=== PATIENT | female | born 2000 | race Caucasian/White ===

== ENCOUNTER 2024-02-24 21:26 | Emergency (ER) | payer BC, MEDICAID, SELFPAY ==
[2024-02-24 21:27] VITALS: BP 153/95
[2024-02-24 21:49] LABS: % Basophils 0.7 % (0-2); % Eosinophils 0.8 % (0-6); % Immature Granulocytes 0.3 % (0-0.5); % Lymphocytes 26.3 % (20.5-51.1); % Monocytes 6.2 % (1.7-9.3); % Neutrophils 65.7 % (42.2-75.2); Absolute Basophils 0.1 10^3/uL (0-0.2); Absolute Eosinophils 0.1 10^3/uL (0-0.7); Absolute Monocytes 0.7 10^3/uL (0.1-0.6); Absolute Neutrophils 7.6 10^3/uL (1.4-6.5); Hematocrit 39.6 % (37.0-47.0); Hemoglobin 13.7 g/dL (12.0-16.0); Mean Corp Hgb Conc. 34.6 g/dL (33.0-37.0); Mean Corpuscular Hgb 28.4 pg (27.0-31.0); Mean Corpuscular Volume 82.2 fL (81.0-99.0); Mean Platelet Volume 9.9 fL (7.4-10.4); Nucleated Red Blood Cells % 0 %; Platelet Count 337 10^3/uL (130-400); Red Blood Cell Count 4.82 10^6/uL (4.20-5.40); Red Cell Dist. Width 12.9 % (11.5-14.5); White Blood Cell Count 11.5 10^3/uL (4.8-10.8)
[2024-02-24 22:27] LABS: ALT (SGPT) 25 U/L (0-35); AST (SGOT) 21 U/L (14-36); Albumin 4.7 g/dl (3.5-5.0); Alkaline Phosphatase 82 U/L (38-126); Blood Urea Nitrogen 21 mg/dl (7-17); Calcium 9.7 mg/dl (8.4-10.2); Carbon Dioxide 23 mmol/L (22-30); Chloride 103 mmol/L (98-107); Glucose 135 mg/dl (70-99); Potassium 3.9 mmol/L (3.5-5.1); Sodium 140 mmol/L (135-145); Total Bilirubin 0.3 mg/dl (0.2-1.3); Total Protein 7.4 g/dl (6.3-8.2); eGFR > 60.00
--- NOTE | 2024-02-25 01:08 | ED.GENMED ---
History of Present Illness
<HENNA Clark - Last Filed: 02/25/24 05:53>
General
Chief Complaint: Dizziness
Source: patient and significant other
Time Seen by Provider: 02/25/24 00:32
Nursing documentation reviewed up to this point in time: agreed with
History of Present Illness
History of Present Illness:
A 23-year-old female with PMH of asthma presents the emergency department for dizziness x 4 hours. She states that while working at the [employer] she initially began to feel dizzy when checking 'temps , which are solid bar temperatures' at 7 PM
tonight. After again checking temps at 8 PM the dizziness returned and resulted in a syncopal episode where she states 'my legs gave out and my coworkers caught me as I went down and sat me on 2 crates. 'The safety team then evaluated her which
prompted them to call EMS who took her to the hospital. She states similar episodes in the past due to hypoglycemia, but that was 'over a year ago 'and admits to having 2 meals today 1 of which was at 6:30 PM.She also admits to hydrating throughout
the day. She denies head injury or bodily injury, loss of consciousness. She states that currently she feels much better. She denies a change in caffeine intake, headache, nausea, vomiting, chest pain, shortness of breath.
Past History
<HENNA Clark - Last Filed: 02/25/24 05:53>
Past History
ED Past Medical History: Asthma
Social History
Tobacco: Non-smoker
Alcohol: Occasional
Drug: None
Review of Systems
<HENNA Clark - Last Filed: 02/25/24 05:53>
Review of Systems
Allergies reviewed?: Yes
Phy Exam
<HENNA Clark - Last Filed: 02/25/24 05:53>
General Physical Exam
General Presentation: well appearing
General age: appears stated age
General Skin: warm and dry
General Habitus: obese
General Mental: alert
General Hydration: appears well hydrated
Eye Exam
Eye Exam: PERRL
Cardiovascular Exam
Cardiovascular Exam: regular rate/rhythm, no edema, no gallop, no murmur and normal peripheral pulses
Pulmonary Exam
Pulmonary Exam: lungs clear, no respiratory distress, no rales, no crackles, no rhonchi, no wheezing and no cough
Neurological Exam
Neurological Exam: alert, oriented x3, CN II-XII intact and no motor deficits
Musculoskeletal Exam
Musculoskeletal Exam: full ROM
Skin Exam
Skin Exam: normal color, warm/dry and no rash
Psychiatric Exam
Psychiatric Exam: normal mood/affect
Course
<Arthur Healy, [facility] - Last Filed: 02/25/24 05:53>
Orders/Labs/Results
Orders:
Orders
02/24/24 21:27
EKG [Electrocardiogram (*1)] Urgent
Reason for Study: Vertigo / Dizzy
EKG- Treatment ONCE
02/24/24 21:44
CBC/With Diff [Complete Blood Count/With Diff] Urgent
CMP [Comprehensive Metabolic Panel] Urgent
Abnormal Lab Results
02/24/24
21:44
WBC 11.5 H 10^3/uL
(4.8-10.8)
Absolute Neuts (auto) 7.6 H 10^3/uL
(1.4-6.5)
Absolute Monos (auto) 0.7 H 10^3/uL
(0.1-0.6)
BUN 21 H mg/dl
(7-17)
Glucose 135 H mg/dl
(70-99)
02/24/24 21:44
02/24/24 21:44
Vital Signs
Initial and Last Documented VS:
Initial Vital Signs
Temp Pulse Resp BP Pulse Ox
98.2 F 124 17 153/95 98
02/24/24 21:27 02/24/24 21:27 02/24/24 21:27 02/24/24 21:27 02/24/24 21:27
Last Documented Vital Signs
Temp Pulse Resp BP Pulse Ox
98.7 F 98 19 152/93 97
02/25/24 01:51 02/25/24 01:51 02/25/24 01:51 02/25/24 01:51 02/25/24 01:51
Dollylt;Andrea Anguiano, - Last Filed: 02/25/24 01:41>
Orders/Labs/Results
Orders:
Orders
02/24/24 21:27
EKG [Electrocardiogram (*1)] Urgent
Reason for Study: Vertigo / Dizzy
EKG- Treatment ONCE
02/24/24 21:44
CBC/With Diff [Complete Blood Count/With Diff] Urgent
CMP [Comprehensive Metabolic Panel] Urgent
Abnormal Lab Results
02/24/24
21:44
WBC 11.5 H 10^3/uL
(4.8-10.8)
Absolute Neuts (auto) 7.6 H 10^3/uL
(1.4-6.5)
Absolute Monos (auto) 0.7 H 10^3/uL
(0.1-0.6)
BUN 21 H mg/dl
(7-17)
Glucose 135 H mg/dl
(70-99)
02/24/24 21:44
02/24/24 21:44
Vital Signs
Initial and Last Documented VS:
Initial Vital Signs
Temp Pulse Resp BP Pulse Ox
98.2 F 124 17 153/95 98
02/24/24 21:27 02/24/24 21:27 02/24/24 21:27 02/24/24 21:27 02/24/24 21:27
Last Documented Vital Signs
Temp Pulse Resp BP Pulse Ox
98.7 F 98 19 152/93 97
02/25/24 01:51 02/25/24 01:51 02/25/24 01:51 02/25/24 01:51 02/25/24 01:51
<HENNA Clark - Last Filed: 02/25/24 05:53>
MDM/Problems Addressed
Differential Diagnosis Includes:
Hypoglycemia, vasovagal syncope, dehydration.
MDM/Problems Addressed:
Hypoglycemia is unlikely due to recent p.o. intake. Dehydration is unlikely due to water intake throughout the day. Syncopal episode is most likely etiology due to working environment and temperature fluctuations at work.
<HENNA Clark - Last Filed: 02/25/24 05:53>
*Critical Care Note
Total Time (30-74mins, 75-104mins- exclusive of procedures): Not Applicable
ED Attending Note
<HENNA Clark - Last Filed: 02/25/24 05:53>
-
Portions of this chart may have been created with voice recognition software.� Occasional wrong word or��sound alike� substitutions may have occurred due to the inherent limitations of voice recognition software.
<Andrea Anguiano DO - Last Filed: 02/25/24 01:41>
ED Attending Note
Patient seen and examined by attending physician: Yes
I performed the substantive portion of visit, reviewed & personally made and approve the management plan that is documented in note by myself or OLIVIA.: Yes
ED Attending Note:
This a pleasant 23-year-old female presents to the emergency after an episode of dizziness. She works in the kitchen at [employer]. She states that she had dizziness tonight for 4 hours. She was working the salad bar checking temperatures
when she began to feel dizzy. She states that her legs gave out and her coworkers sat her down onto crates. 911 was called and she was evaluated by EMS. She was brought to the hospital. She has had similar episodes in the past secondary to
hypoglycemia. Patient states that upon arrival, symptoms had mostly resolved. Patient was seen in conjunction with the PA student. I have reviewed and agree with the history and treatment plan presented. On my independent physical exam, patient
is awake, alert, and oriented x3 no acute distress. Mentating appropriately heart is regular rate and rhythm, lungs are clear to auscultation bilaterally. Skin is warm and dry. Patient is mentating appropriately.
Discharge Plan
Departure
Patient Disposition: Home (Routine Discharge)
Date of Disposition: 02/25/24
Time of Disposition: 01:37
Patient with high blood pressure during this ER visit?: Yes
Discharge Problem:
Near syncope
Instructions: Near Fainting (DC), BLOOD PRESSURE
Referrals:
[facility] [Outside]
[facility] [Outside]
UNKNOWN - PT DOES,NOT KNOW [Family Provider] -
Activity Restrictions/Additional Instructions:
It was a pleasure meeting you and taking part in your care. We hope for your continued healing and wellness.
Please read discharge instructions in their entirety. However, they are for general education and may not describe your exact diagnosis at discharge. Information on your ER visit and medical conditions were discussed with you along with appropriate
follow up information...
If indicated, please take your medications as instructed and indicated on discharge paperwork.
Please schedule a follow up appointment as directed. Call to schedule an appointment
Please return to the emergency department with ANY change in, persisting, or worsening of symptoms. If any of your symptoms do not improve, or persist, or become more severe within 6-12 hours, please return to the emergency department for further
care.
Please return to the emergency department if you develop a headache, neck pain/stiffness, fever greater than 100.4F, chest pain, shortness of breath, persistent nausea, vomiting, slurred speech, difficulty walking, numbness/tingling, weakness, signs
of infection or any other symptoms that are worrisome to you.
If you have any questions or concerns please do not hesitate to call the Hospital at or E-mail me directly at [email or web address]
Interventions
Interventions:
*Risk Screen - Suicide Last Done: 02/24/24 21:27
*General Assessment Last Done: 02/24/24 23:38
*Neglect/Abuse Screening Last Done: 02/24/24 21:27
ED- Fall Risk Assessment Last Done: 02/24/24 23:38
*ED COVID-19 Vaccine History Last Done: 02/24/24 23:38
*Nursing Disposition Last Done: 02/25/24 01:52
ED- Neurological Assessment Last Done: 02/24/24 23:38
Discharge Date and Time
Discharge Date/Time: 02/25/24 01:55
Print Language: TUNISIAN
[2024-02-25 01:51] VITALS: BP 152/93
== END 2024-02-25 01:55 | disposition home or self-care (01) ==
LOC: EMR 21:26
PROVIDERS: Emergency Medicine; EMERGENCY PHYSICIAN Student in an Organized Health Care Education/Training Program
DX: R55 Syncope and collapse (principal); R03.0 Elevated blood-pressure reading, without diagnosis of hypertension; J45.909 Unspecified asthma, uncomplicated
CPT/HCPCS: 99284; 80053; 85025; 93005

== ENCOUNTER 2024-03-08 15:25 | Emergency (ER) | payer BC, MEDICAID, SELFPAY ==
[2024-03-08 15:29] VITALS: BP 174/107
[2024-03-08 15:32] VITALS: BP 174/107
[2024-03-08 16:00] VITALS: BP 171/104
--- NOTE | 2024-03-08 16:07 | ED.GENMED ---
History of Present Illness
General
Chief Complaint: Seizure
Source: patient and other (Friend)
Exam Limitations: none
Time Seen by Provider: 03/08/24 15:40
Nursing documentation reviewed up to this point in time: agreed with
History of Present Illness
History of Present Illness:
23-year-old female presents emergency department due to possible seizure versus syncope. She states she is feeling weak, and then was falling to the ground and in and out of consciousness. She states her arms and legs were shaking. She did not
bite her tongue. She does states she was very tired after the event. Event lasted about 1 minute. She has similar episode 2 weeks ago.
Past History
Past History
ED Past Medical History: Asthma and Other (Congenital adrenal insufficiency)
ED Past Surgical History: None
Social History
Tobacco: Non-smoker
Alcohol: Occasional
Drug: None
Review of Systems
Review of Systems
Allergies reviewed?: Yes
All Other Systems: Not applicable
Constitutional: Reports no symptoms
EENT: Reports no symptoms
Respiratory: Reports no symptoms
Cardiac: Reports no symptoms
ABD/GI: Reports no symptoms
: Reports no symptoms
Musculoskeletal: Reports no symptoms
Skin: Reports no symptoms
Neurological: Reports other (Possible seizure)
Endocrine: Reports no symptoms
Hematologic/Lymphatic: Reports no symptoms
Psychiatric: Reports no symptoms
Phy Exam
Physical Exam
Physical Exam:
Physical Exam
General: no apparent distress, not acutely ill
Neck: supple. no meningeal signs. normal posterior pharynx
Heart: s1/s2 regular rate and rhythm, no murmur. equal radial
pulses.
HEENT: Pupils equal round reactive to light, EOMI
Lungs: no acute respiratory distress. clear bilaterally
Abdomen: normal bowel sounds. not tender. no CVAT
Neuro: alert and oriented. no focal neurological deficits cranial nerves II through XII intact
Skin: no rash
Psychiatric: well kept. interactive and cooperative
Extremities: no edema. no calf tenderness. negative homans. good distal pulses
Course
Orders/Labs/Results
Orders:
Orders
03/08/24 15:41
Electrocardiogram (*1) Urgent
Reason for Study: Tachycardia
EKG- Treatment ONCE
03/08/24 16:02
IV Insert/Care/Rem.- Treatment PRN
03/08/24 16:06
CT Head W/o Iv Contrast Urgent
Comment:
Reason For Exam: seizure vs syncope
Test Result ONCE
03/08/24 16:11
Complete Blood Count/With Diff Urgent
Comprehensive Metabolic Panel Urgent
Cortisol, Random Urgent
HCG, Serum Qualitative Screen Urgent
03/08/24 16:15
Urine Drug Abuse Screen Urgent
Date Specimen was Collected: 03/08/24
Time Specimen was Collected: 16:20
Abnormal Lab Results
03/08/24
16:11
Absolute Neuts (auto) 7.4 H 10^3/uL
(1.4-6.5)
Glucose 122 H mg/dl
(70-99)
03/08/24 16:11
03/08/24 16:11
Vital Signs
Initial and Last Documented VS:
Initial Vital Signs
Temp Pulse Resp BP Pulse Ox
98.1 F 113 18 174/107 99
03/08/24 15:32 03/08/24 15:32 03/08/24 15:32 03/08/24 15:32 03/08/24 15:32
Last Documented Vital Signs
Temp Pulse Resp BP Pulse Ox
98.1 F 113 18 174/107 99
03/08/24 15:32 03/08/24 15:32 03/08/24 15:32 03/08/24 15:32 11/11/24 15:32
MDM/Problems Addressed
Differential Diagnosis Includes:
Seizure, syncope, dysrhythmia
MDM/Problems Addressed:
23-year-old female with likely syncope episode. Doubt seizure. Discussed with Dr. Dominguez, who recommends tilt testing, follow-up with cardiology and neurology.
Chronic conditions affecting care: Asthma and Other (Congenital adrenal insufficiency)
*Radiology
Radiology exam reviewed: radiology read reviewed (CT head no acute findings)
*Pulse Oximetry
Patient hypoxic: no
*EKG
Interpreted by ED Provider?: Yes
EKG Intrepretation Date: 03/08/24
EKG Intrepretation Time: 15:45
Interpretation: abnormal
Comparison EKG: no changes
Heart Rate: 110
Rate: tachycardiac
Rhythm: sinus tachycardia
[place]: normal axis
Interval: normal interval
QRS Pattern: normal QRS
Ischemia: no ischemia
*[employer] Interpretation
Rate: tachycardiac
Interpretation: abnormal
Heart Rate: 112
Rhythm: sinus tachycardia
*Critical Care Note
Total Time (30-74mins, 75-104mins- exclusive of procedures): Not Applicable
Data Reviewed
Review of Other/Old Records Reveals: Labs
Patient Management
Discussion with other providers: [employer] Professor (Discussed with Dr. Man, neurologist)
Escalation/DeEscalation of care consider admission/obs:
Admit not indicated
ED Attending Note
-
Portions of this chart may have been created with voice recognition software.� Occasional wrong word or��sound alike� substitutions may have occurred due to the inherent limitations of voice recognition software.
Discharge Plan
Departure
Patient Disposition: Home (Routine Discharge)
Date of Disposition: 03/08/24
Time of Disposition: 18:12
Patient with high blood pressure during this ER visit?: Yes
Condition: Good
Discharge Problem:
Syncope
Instructions: Syncope (Fainting) (DC), BLOOD PRESSURE
Referrals:
Vinicius Wilson MD [Active] - Call in 1-3 days for appt
Donnie Man MD [Active] - Call in 1-3 days for appt
UNKNOWN - PT DOES,NOT KNOW [Family Provider] -
Interventions
Interventions:
*Risk Screen - Suicide Last Done: 03/08/24 15:32
*General Assessment Last Done: 03/08/24 15:32
*Neglect/Abuse Screening Last Done: 03/08/24 15:32
Discharge Date and Time
Print Language: ECUADOREAN
[2024-03-08 16:31] LABS: % Basophils 0.6 % (0-2); % Eosinophils 0.9 % (0-6); % Immature Granulocytes 0.4 % (0-0.5); % Lymphocytes 20.8 % (20.5-51.1); % Monocytes 5.7 % (1.7-9.3); % Neutrophils 71.6 % (42.2-75.2); Absolute Basophils 0.1 10^3/uL (0-0.2); Absolute Eosinophils 0.1 10^3/uL (0-0.7); Absolute Lymphocytes 2.2 10^3/uL (1.2-3.4); Absolute Monocytes 0.6 10^3/uL (0.1-0.6); Absolute Neutrophils 7.4 10^3/uL (1.4-6.5); Hematocrit 44.7 % (37.0-47.0); Mean Corp Hgb Conc. 33.6 g/dL (33.0-37.0); Mean Corpuscular Hgb 28.8 pg (27.0-31.0); Mean Platelet Volume 9.6 fL (7.4-10.4); Nucleated Red Blood Cells % 0 %; Platelet Count 314 10^3/uL (130-400); Red Cell Dist. Width 13.1 % (11.5-14.5); White Blood Cell Count 10.3 10^3/uL (4.8-10.8)
[2024-03-08 16:38] LABS: ALT (SGPT) 21 U/L (0-35); AST (SGOT) 19 U/L (14-36); Albumin 4.4 g/dl (3.5-5.0); Alkaline Phosphatase 67 U/L (38-126); Blood Urea Nitrogen 13 mg/dl (7-17); Calcium 9.4 mg/dl (8.4-10.2); Carbon Dioxide 25 mmol/L (22-30); Chloride 103 mmol/L (98-107); Glucose 122 mg/dl (70-99); Sodium 142 mmol/L (135-145); Total Bilirubin 0.4 mg/dl (0.2-1.3); Total Protein 7.3 g/dl (6.3-8.2); eGFR > 60.00
[2024-03-08 16:41] LABS: HCG, Serum Qualitative Screen Negative
[2024-03-08 16:51] LABS: Amphetamines Negative (Negative); Barbiturates Negative (Negative); Benzodiazepines Negative (Negative); Buprenorphine Negative (Negative); Cocaine Negative (Negative); Marijuana Negative (Negative); Methadone Negative (Negative); Methamphetamines Negative (Negative); Opiates Negative (Negative); Phencyclidine Negative (Negative); Tricyclic Antidepressants Negative (Negative)
[2024-03-08 17:09] LABS: Cortisol, Random 14.4 ug/dl
[2024-03-08 18:00] VITALS: BP 140/93
== END 2024-03-08 18:35 | disposition home or self-care (01) ==
LOC: EMR 15:25
PROVIDERS: EMERGENCY PHYSICIAN Emergency Medicine
DX: R55 Syncope and collapse (principal)
CPT/HCPCS: 99285; 70450; 80053; 80306; 82533; 84703; 85025; 93005

== ENCOUNTER 2024-03-09 17:46 | Emergency (ER) | payer BC, MEDICAID, SELFPAY ==
[2024-03-09 17:51] VITALS: BP 140/96; BMI 46.4
--- NOTE | 2024-03-09 17:55 | ED.GENMED ---
History of Present Illness
General
Chief Complaint: Seizure
Source: patient
Exam Limitations: none
Time Seen by Provider: 03/09/24 17:53
Nursing documentation reviewed up to this point in time: agreed with
History of Present Illness
History of Present Illness:
23-year-old female with past medical history of asthma presents emergency department today with concerns of seizures for the past 3 weeks. Patient reports that she started having intermittent episodes of twitching in her eyes and face associated
with transient alteration in consciousness and inability to speak. Her friends have been telling her that she has been having seizures. Patient reports that these episodes occur once a day for the past 3 weeks. Patient states that after this
occurs, she will get a mild headache and fatigue for a few hours. She denies chest pain or shortness of breath. She denies fevers, chills, nausea, vomiting, neck pain. She states that she had a tonic-clonic seizure vs potential syncopal episode
yesterday which is the first time this occurred and was seen in the emergency department and was discharged with recommendations to see cardiology and neurology as an outpatient. Patient states that she has not yet called to schedule an appointment
with neurology. Patient states that she presents today to try to find answers.
Past History
Past History
ED Past Medical History: Asthma and Other (Congenital adrenal insufficiency)
ED Past Surgical History: None
Social History
Tobacco: Non-smoker
Alcohol: Occasional
Drug: None
Review of Systems
Review of Systems
All Other Systems: ROS reviewed and negative except as documented in HPI and ROS
Phy Exam
Physical Exam
Physical Exam:
General: Patient is well appearing and in no acute distress; non-toxic
Skin: Warm and dry, no rashes or lesions
Head: Normocephalic, atraumatic
Eyes: Sclera non-icteric. EOMs intact. PERRLA.
Cardiac: Regular rate and rhythm, no murmurs.
Peripheral Vascular: No lower extremity swelling or edema.
Pulm: Normal respiratory effort, no wheezes, rales, or rhonchi.
Musculoskeletal: 5/5 strength in bilateral upper and lower extremities.
Neuro: CN II-XII intact, no focal neurologic deficits. No resting tremor. Sensation intact to light touch bilaterally.
Psychiatric: Appropriate mood and affect.
Course
Orders/Labs/Results
Orders:
Orders
03/09/24 18:08
Electrocardiogram (*1) Urgent
Reason for Study: Syncope
EKG- Treatment ONCE
03/09/24 18:27
Complete Blood Count/With Diff Urgent
Comprehensive Metabolic Panel Urgent
03/09/24 18:27
03/09/24 18:27
Vital Signs
Initial and Last Documented VS:
Initial Vital Signs
Temp Pulse Resp BP Pulse Ox
98.7 F 106 16 140/96 97
03/09/24 17:51 03/09/24 17:51 03/09/24 17:51 03/09/24 17:51 03/09/24 17:51
Last Documented Vital Signs
Temp Pulse Resp BP Pulse Ox
98.7 F 113 18 147/108 99
03/09/24 17:51 03/09/24 18:00 03/09/24 18:00 03/09/24 18:00 03/09/24 18:00
MDM/Problems Addressed
Differential Diagnosis Includes:
ddx include seizure disorder, syncopal episode, electrolyte derangement
MDM/Problems Addressed:
23-year-old female with past medical history of asthma presents emergency department today with concerns of seizures for the past 3 weeks. Patient reports that she started having intermittent episodes of twitching in her eyes and face associated
with transient alteration in consciousness and inability to speak. Her friends have been telling her that she has been having seizures. Patient reports that these episodes occur once a day for the past 3 weeks. Patient states that she had another
one of these episodes today and is presenting today to try to figure out why. She currently has a mild headache and fatigue but has no other symptoms. On exam, she is well-appearing, she is no acute distress, she is mildly tachycardic but this
resolved without intervention prior to discharge. Her CBC and CMP are unremarkable. Did discuss this case with neurologist on-call Dr. Man who recommends starting patient on topiramate for potential seizures. Discussed this with patient,
stressed the importance of neurology follow-up, patient states that she will call the office tomorrow to schedule an appointment. Discussed return precautions, patient stable for discharge
Chronic conditions affecting care:
n/a
Acute Exacerbation and/or Progression of Chronic Illness:
n/a
*Pulse Oximetry
Patient hypoxic: no
*Critical Care Note
Total Time (30-74mins, 75-104mins- exclusive of procedures): Not Applicable
Data Reviewed
Review of Other/Old Records Reveals: Records (Reviewed ER physician documentation from 03/08/2024, reviewed ER physician documentation from 01/29/2024, patient seen for similar symptoms)
Patient Management
Escalation/DeEscalation of care consider admission/obs:
Case reviewed with my ER attending and neurology
ED Attending Note
-
Portions of this chart may have been created with voice recognition software.� Occasional wrong word or��sound alike� substitutions may have occurred due to the inherent limitations of voice recognition software.
Discharge Plan
Departure
Patient Disposition: Home (Routine Discharge)
Date of Disposition: 03/09/24
Time of Disposition: 19:17
Patient with high blood pressure during this ER visit?: Yes
Condition: Good
Discharge Problem:
Seizure
Instructions: Seizures, Adult (DC), BLOOD PRESSURE
Prescriptions:
New
topiramate 50 mg tablet
50 mg PO BID Qty: 30 0RF
Referrals:
Donnie Man MD [Active] - Call in 1-3 days for appt
Activity Restrictions/Additional Instructions:
You can start taking a medication called topiramate. You can take 1 tablet twice daily.
Please call the attached number tomorrow morning as soon as possible to schedule an appointment with a neurologist.
Please return to the emergency department should you develop any change in persisting or worsening of your symptoms, if your symptoms do not improve, if you develop a headache, neck pain, stiffness, fever greater than 100.4, chest pain, shortness of
breath, nausea, vomiting, slurred speech, difficulty walking, or any other symptoms that are worrisome to you.
Interventions
Interventions:
*Risk Screen - Suicide Last Done: 03/09/24 17:51
*General Assessment Last Done: 03/09/24 17:51
*Neglect/Abuse Screening Last Done: 03/09/24 17:51
*ED COVID-19 Vaccine History Last Done: 03/09/24 17:51
ED- Cardiac Assessment Last Done: 03/09/24 18:10
ED- Neurological Assessment Last Done: 03/09/24 18:10
ED- Pulmonary Assessment Last Done: 03/09/24 19:10
Discharge Date and Time
Print Language: SINGAPOREAN
[2024-03-09 18:00] VITALS: BP 147/108
[2024-03-09 18:36] LABS: % Basophils 0.8 % (0-2); % Eosinophils 1.3 % (0-6); % Immature Granulocytes 0.3 % (0-0.5); % Lymphocytes 25.3 % (20.5-51.1); % Neutrophils 65.3 % (42.2-75.2); Absolute Basophils 0.1 10^3/uL (0-0.2); Absolute Eosinophils 0.1 10^3/uL (0-0.7); Absolute Lymphocytes 2.3 10^3/uL (1.2-3.4); Absolute Monocytes 0.6 10^3/uL (0.1-0.6); Absolute Neutrophils 5.9 10^3/uL (1.4-6.5); Hematocrit 45.1 % (37.0-47.0); Hemoglobin 15.1 g/dL (12.0-16.0); Mean Corp Hgb Conc. 33.5 g/dL (33.0-37.0); Mean Corpuscular Hgb 29.3 pg (27.0-31.0); Mean Corpuscular Volume 87.4 fL (81.0-99.0); Mean Platelet Volume 9.6 fL (7.4-10.4); Nucleated Red Blood Cells % 0 %; Platelet Count 323 10^3/uL (130-400); Red Blood Cell Count 5.16 10^6/uL (4.20-5.40); Red Cell Dist. Width 13.2 % (11.5-14.5); White Blood Cell Count 9.1 10^3/uL (4.8-10.8)
[2024-03-09 18:49] LABS: ALT (SGPT) 20 U/L (0-35); AST (SGOT) 18 U/L (14-36); Albumin 4.7 g/dl (3.5-5.0); Alkaline Phosphatase 86 U/L (38-126); Blood Urea Nitrogen 15 mg/dl (7-17); Calcium 9.8 mg/dl (8.4-10.2); Carbon Dioxide 26 mmol/L (22-30); Chloride 102 mmol/L (98-107); Estimated Creatinine Clearance > 125 ml/min; Glucose 83 mg/dl (70-99); Potassium 4.2 mmol/L (3.5-5.1); Sodium 140 mmol/L (135-145); Total Bilirubin 0.2 mg/dl (0.2-1.3); Total Protein 7.6 g/dl (6.3-8.2); eGFR > 60.00
[2024-03-09 19:00] VITALS: BP 133/77
== END 2024-03-09 20:17 | disposition home or self-care (01) ==
LOC: EMR 17:46
PROVIDERS: Physician Assistant; EMERGENCY PHYSICIAN Emergency Medicine
DX: G40.909 Epilepsy, unspecified, not intractable, without status epilepticus (principal); J45.909 Unspecified asthma, uncomplicated; E27.40 Unspecified adrenocortical insufficiency
CPT/HCPCS: 99283; 80053; 85025; 93005

== ENCOUNTER 2024-08-05 09:24 | Emergency (ER) | payer BC, MEDICAID, SELFPAY ==
[2024-08-05 09:35] VITALS: BP 148/100
--- NOTE | 2024-08-05 10:28 | ED.GENMED ---
History of Present Illness
General
Chief Complaint: Seizure
Source: patient
Exam Limitations: none
Time Seen by Provider: 08/05/24 10:13
Nursing documentation reviewed up to this point in time: agreed with
History of Present Illness
History of Present Illness:
23-year-old female with past medical history of functional seizures, asthma and anxiety presenting to the emergency department today after having 2 short lived episodes of seizures yesterday. Also has had some chest heaviness since yesterday.
Claims that she has followed up with neurology she was previously on topiramate and Keppra but told that she does not have neurologic seizures and that she has functional seizures or psychogenic seizures.
Past History
Past History
ED Past Medical History: Asthma and Other (Congenital adrenal insufficiency)
ED Past Surgical History: None
Social History
Tobacco: Non-smoker
Alcohol: Occasional
Drug: None
Review of Systems
Review of Systems
Allergies reviewed?: Yes
All Other Systems: ROS reviewed and negative except as documented in HPI and ROS
Phy Exam
Physical Exam
Physical Exam:
GENERAL: Alert , in no apparent distress
EYE: pupils equal and reactive
NECK: Supple, no significant adenopathy.
ENT: o/p clr, mmm.
CARDIAC: Regular rate and rhythm .
LUNGS: Clear breath sounds bilaterally, no acute respiratory distress, no wheezes/rales/rhonchi
ABDOMEN: Soft, without focal tenderness, no r/g, no cvat
NEUROLOGICAL: Alert and oriented, no focal neuro deficits
SKIN: Warm and dry, skin intact.
MUSCULOSKELETAL: No edema, well perfused.
PSYCH: Normal and appropriate interaction.
Course
Orders/Labs/Results
Orders:
Orders
08/05/24 09:24
Electrocardiogram (*1) Urgent
Reason for Study: Palpitations
08/05/24 09:25
EKG- Treatment ONCE
08/05/24 10:23
CR Chest - 2 Views Urgent
Comment:
Reason For Exam: cp
08/05/24 10:42
Complete Blood Count/With Diff Urgent
Comprehensive Metabolic Panel Urgent
Magnesium Urgent
Troponin I Urgent
Abnormal Lab Results
08/05/24
10:42
ALT 36 H U/L
(0-35)
08/05/24 10:42
08/05/24 10:42
Vital Signs
Initial and Last Documented VS:
Initial Vital Signs
Temp Pulse Resp BP Pulse Ox
98.6 F 94 16 148/100 98
08/05/24 09:35 08/05/24 09:35 08/05/24 09:35 08/05/24 09:35 08/05/24 09:35
Last Documented Vital Signs
Temp Pulse Resp BP Pulse Ox
98.6 F 75 26 148/100 99
08/05/24 09:35 08/05/24 11:30 08/05/24 11:30 08/05/24 09:35 08/05/24 11:30
MDM/Problems Addressed
MDM/Problems Addressed:
23-year-old female presenting to the emergency department today with concerns of seizure-like activity yesterday ongoing chest discomfort since yesterday. EKG normal vital signs normal patient no distress normal heart and lung examination normal
neurologic evaluation. Here patient is well-appearing no distress EKG normal labs unremarkable troponin negative chest x-ray normal. No evidence of emergent pathology causing chest pain stable for outpatient follow-up with the primary care doctor.
Return precautions given.
*Critical Care Note
Total Time (30-74mins, 75-104mins- exclusive of procedures): Not Applicable
ED Attending Note
-
Portions of this chart may have been created with voice recognition software.� Occasional wrong word or��sound alike� substitutions may have occurred due to the inherent limitations of voice recognition software.
Discharge Plan
Departure
Patient Disposition: Home (Routine Discharge)
Date of Disposition: 08/05/24
Time of Disposition: 11:46
Patient with high blood pressure during this ER visit?: No
Condition: Good
Covid-19: Not Applicable
Discharge Problem:
Chest pain
Instructions: Chest Pain PCP Follow Up
Prescriptions:
No Action
topiramate 50 mg tablet
50 mg PO BID Qty: 30 0RF
Referrals:
NONE,* [Family Provider] -
Activity Restrictions/Additional Instructions:
You came to the emergency department today with concerns of chest discomfort. Here you have a reassuring assessment. Please feel closely with your primary care doctor within the next week or so. Return for any worsening, new or concerning
symptoms.
Interventions
Interventions:
*Risk Screen - Suicide Last Done: 08/05/24 09:37
*Neglect/Abuse Screening Last Done: 08/05/24 09:37
ED- Cardiac Assessment Last Done: 08/05/24 10:45
ED- Neurological Assessment Last Done: 08/05/24 10:44
ED- Pulmonary Assessment Last Done: 08/05/24 10:45
Discharge Date and Time
Print Language: [email or web address]
[2024-08-05 10:55] LABS: % Basophils 0.6 % (0-2); % Eosinophils 0.6 % (0-6); % Immature Granulocytes 0.4 % (0-0.5); % Lymphocytes 28.3 % (20.5-51.1); % Monocytes 6.3 % (1.7-9.3); % Neutrophils 63.8 % (42.2-75.2); Absolute Basophils 0.1 10^3/uL (0-0.2); Absolute Eosinophils 0.1 10^3/uL (0-0.7); Absolute Lymphocytes 2.3 10^3/uL (1.2-3.4); Absolute Monocytes 0.5 10^3/uL (0.1-0.6); Absolute Neutrophils 5.2 10^3/uL (1.4-6.5); Hematocrit 45.7 % (37.0-47.0); Hemoglobin 15.8 g/dL (12.0-16.0); Mean Corp Hgb Conc. 34.6 g/dL (33.0-37.0); Mean Corpuscular Hgb 29.8 pg (27.0-31.0); Mean Corpuscular Volume 86.1 fL (81.0-99.0); Mean Platelet Volume 9.7 fL (7.4-10.4); Nucleated Red Blood Cells % 0 %; Platelet Count 299 10^3/uL (130-400); Red Blood Cell Count 5.31 10^6/uL (4.20-5.40); Red Cell Dist. Width 13.2 % (11.5-14.5); White Blood Cell Count 8.1 10^3/uL (4.8-10.8)
[2024-08-05 11:11] LABS: ALT (SGPT) 36 U/L (0-35); AST (SGOT) 26 U/L (14-36); Albumin 4.5 g/dl (3.5-5.0); Alkaline Phosphatase 68 U/L (38-126); Blood Urea Nitrogen 14 mg/dl (7-17); Calcium 9.7 mg/dl (8.4-10.2); Carbon Dioxide 26 mmol/L (22-30); Chloride 106 mmol/L (98-107); Glucose 91 mg/dl (70-99); Magnesium 1.8 mg/dl (1.6-2.3); Potassium 4.6 mmol/L (3.5-5.1); Sodium 140 mmol/L (135-145); Total Bilirubin 0.7 mg/dl (0.2-1.3); Total Protein 7.5 g/dl (6.3-8.2); eGFR > 60.00
[2024-08-05 11:19] LABS: Troponin I < 0.012 ng/ml
== END 2024-08-05 12:10 | disposition home or self-care (01) ==
LOC: EMR 09:24
PROVIDERS: Physician Assistant; EMERGENCY PHYSICIAN Emergency Medicine
DX: R07.89 Other chest pain (principal); J45.909 Unspecified asthma, uncomplicated; E27.40 Unspecified adrenocortical insufficiency
CPT/HCPCS: 99285; 71046; 80053; 83735; 84484; 85025; 93005

== ENCOUNTER 2024-09-02 15:01 | Emergency (ER) | payer BC, MEDICAID, SELFPAY ==
[2024-09-02 15:08] VITALS: BP 146/100
[2024-09-02 15:25] LABS: % Basophils 0.5 % (0-2); % Eosinophils 0.5 % (0-6); % Immature Granulocytes 0.5 % (0-0.5); % Lymphocytes 20.3 % (20.5-51.1); % Monocytes 6.5 % (1.7-9.3); % Neutrophils 71.7 % (42.2-75.2); Absolute Basophils 0.1 10^3/uL (0-0.2); Absolute Eosinophils 0.1 10^3/uL (0-0.7); Absolute Immature Granulocytes 0.1 10^3/uL (0-0.05); Absolute Lymphocytes 2.2 10^3/uL (1.2-3.4); Absolute Monocytes 0.7 10^3/uL (0.1-0.6); Absolute Neutrophils 7.9 10^3/uL (1.4-6.5); Hematocrit 45.2 % (37.0-47.0); Hemoglobin 15.5 g/dL (12.0-16.0); Mean Corp Hgb Conc. 34.3 g/dL (33.0-37.0); Mean Corpuscular Hgb 29.3 pg (27.0-31.0); Mean Corpuscular Volume 85.4 fL (81.0-99.0); Mean Platelet Volume 9.6 fL (7.4-10.4); Nucleated Red Blood Cells % 0 %; Platelet Count 316 10^3/uL (130-400); Red Blood Cell Count 5.29 10^6/uL (4.20-5.40); Red Cell Dist. Width 13.1 % (11.5-14.5)
[2024-09-02 15:48] LABS: ALT (SGPT) 29 U/L (0-35); AST (SGOT) 21 U/L (14-36); Albumin 4.6 g/dl (3.5-5.0); Alkaline Phosphatase 64 U/L (38-126); Blood Urea Nitrogen 15 mg/dl (7-17); Carbon Dioxide 25 mmol/L (22-30); Chloride 106 mmol/L (98-107); Glucose 116 mg/dl (70-99); Potassium 4.3 mmol/L (3.5-5.1); Sodium 141 mmol/L (135-145); Total Bilirubin 0.7 mg/dl (0.2-1.3); Total Protein 7.5 g/dl (6.3-8.2); eGFR > 60.00
--- NOTE | 2024-09-02 19:00 | ED.GENMED ---
History of Present Illness
General
Chief Complaint: Blood Sugar Problem
Source: patient
Exam Limitations: none
Time Seen by Provider: 09/02/24 18:46
History of Present Illness
History of Present Illness:
23yoF with a history of asthma and anxiety presenting for concern for diabetes. Patient has been having seizure-like episodes since February 2024. The episodes are different each time. Sometimes, she nods off and other episodes involve
generalized shaking and tingling in her extremities. She has been seen by neurology in [facility] regarding these episodes. Patient has undergone multiple tests including EKGs, 72-hour EEG, and MRI brain which have come back normal. She was
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 She continues to have these episodes and last episode was 1 week ago. Several family members of hers have diabetes and she became concerned that these episodes may be related to
diabetes so she decided to come to the ED. 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
Past History
Past History
ED Past Medical History: Asthma and Other (Congenital adrenal insufficiency)
ED Past Surgical History: None
Social History
Tobacco: Non-smoker
Alcohol: Occasional
Drug: None
Phy Exam
General Physical Exam
General Presentation: well appearing and no apparent distress
General age: appears stated age
General Skin: warm and dry
General Habitus: normal
General Mental: alert
ENT Exam
ENT Exam: normocephalic
Cardiovascular Exam
Cardiovascular Exam: regular rate/rhythm and no murmur
Pulmonary Exam
Pulmonary Exam: lungs clear, no respiratory distress, no rales, no crackles and no rhonchi
Neurological Exam
Neurological Exam: alert
Rosetta Coma Scale
Eye Opening: Spontaneous
Verbal Response: Oriented
Motor Response: Obeys Commands
GCS Total Score: 15
Skin Exam
Skin Exam: normal color and warm/dry
Psychiatric Exam
Psychiatric Exam: normal mood/affect
Course
Orders/Labs/Results
Orders:
Orders
09/02/24 15:18
Complete Blood Count/With Diff Urgent
Comprehensive Metabolic Panel Urgent
Glycohemoglobin (HgbA1c) Urgent
09/02/24 18:59
Add On- LAB Urgent
Tests Added?: HbA1c
Abnormal Lab Results
09/02/24
15:18
WBC 11.0 H 10^3/uL
(4.8-10.8)
Abs Immat Gran (auto) 0.1 H 10^3/uL
(0-0.05)
Absolute Neuts (auto) 7.9 H 10^3/uL
(1.4-6.5)
Absolute Monos (auto) 0.7 H 10^3/uL
(0.1-0.6)
Lymphocytes % 20.3 L %
(20.5-51.1)
Glucose 116 H mg/dl
(70-99)
09/02/24 15:18
09/02/24 15:18
Vital Signs
Initial and Last Documented VS:
Initial Vital Signs
Temp Pulse Resp BP Pulse Ox
98.5 F 124 18 146/100 97
09/02/24 15:08 09/02/24 15:08 09/02/24 15:08 09/02/24 15:08 09/02/24 15:08
Last Documented Vital Signs
Temp Pulse Resp BP Pulse Ox
98.5 F 99 18 136/85 98
09/02/24 15:08 09/02/24 19:06 09/02/24 19:06 09/02/24 19:06 09/02/24 19:06
MDM/Problems Addressed
Differential Diagnosis Includes:
23yoF here requesting diabetic screening. Having intermittent seizure-like episodes x 6 months. Previously seen by neurology and diagnosed with PNES. Wondering whether her symptoms are 2/2 diabetes. Last episode 1 week ago. HR 124 in triage although
HR is normal on initial exam. Differential diagnosis includes but is not limited to: PNES, seizure, diabetes
Labs obtained in triage. Glucose is 116 and she confirms this is non-fasting. Will add on HbA1c for completeness. No indication for hospitalization. She does not believe her symptoms are related to PNES. She was encouraged to f/u with her PCP and
neurology. She was discharged in stable condition.
*Critical Care Note
Total Time (30-74mins, 75-104mins- exclusive of procedures): Not Applicable
ED Attending Note
-
Portions of this chart may have been created with voice recognition software.� Occasional wrong word or��sound alike� substitutions may have occurred due to the inherent limitations of voice recognition software.
Discharge Plan
Departure
Patient Disposition: Home (Routine Discharge)
Date of Disposition: 09/02/24
Time of Disposition: 19:06
Patient with high blood pressure during this ER visit?: Yes
Discharge Problem:
Screening for diabetes mellitus
Instructions: Blood glucose tests
Prescriptions:
No Action
topiramate 50 mg tablet
50 mg PO BID Qty: 30 0RF
Referrals:
Lucia Yan MD [Active] -
Activity Restrictions/Additional Instructions:
Your blood sugar today was 116 which is a normal non-fasting glucose.
Please follow-up with your family doctor and neurology. Return to the ER with any new or worsening symptoms.
Interventions
Interventions:
*Risk Screen - Suicide Last Done: 09/02/24 15:08
*General Assessment Last Done: 09/02/24 15:08
*Neglect/Abuse Screening Last Done: 09/02/24 15:08
*ED COVID-19 Vaccine History Last Done: 09/02/24 15:08
ED- Neurological Assessment Last Done: 09/02/24 19:08
Discharge Date and Time
Print Language: [email or web address]
[2024-09-02 19:06] VITALS: BP 136/85
[2024-09-03 12:18] LABS: Glycohemoglobin (HgbA1c) 5.1 % (4.0-5.6)
== END 2024-09-02 19:20 | disposition home or self-care (01) ==
LOC: EMR 15:01
PROVIDERS: Emergency Medicine; EMERGENCY PHYSICIAN Emergency Medicine
DX: Z13.1 Encounter for screening for diabetes mellitus (principal); J45.909 Unspecified asthma, uncomplicated; E27.40 Unspecified adrenocortical insufficiency
CPT/HCPCS: 99283; 80053; 83036; 85025